=== PATIENT | male | born 1990 | race Caucasian/White ===

== ENCOUNTER 2023-02-06 19:24 | Emergency (ER) | payer OTHER, SELFPAY ==
[2023-02-06 19:39] VITALS: BP 162/94; PULSE 99; RESP 16; TEMP 36.6; O2SAT 94; BMI 28.5
--- NOTE | 2023-02-06 19:53 | ED.GENADULT ---
HPI - General Adult General Date Seen: 02/06/23 Chief complaint: Laceration/Wound Stated complaint: Leg Lac Time Seen by Provider: 02/06/23 19:44 Source: patient Mode of arrival: ambulatory Limitations: no limitations History of Present Illness HPI narrative: Patient is a 32-year-old male who presents about an hour and a half after an injury to his left leg. He says he tripped going up into a trailer and scraped it on a piece of metal. His last tetanus is unknown, we are checking on that. He denies any loss of function or numbness, no other complaints. He says he was not sure if he needed to come in but his girlfriend made him. General health is good. Related Data Allergies Allergy/AdvReac Type Severity Reaction Status Date / Time No Known Drug Allergies Allergy Verified 02/06/23 19:39 Review of Systems Status of ROS: Reports: 6 or more systems reviewed and unremarkable except as noted in History and below [facility] Social History Smoking Status: Current every day smoker What tobacco products do you use: cigarettes Exam Narrative: Exam Narrative: Vital signs reviewed In general, an alert, nontoxic male. Extremities: Examination of the left lower extremity shows a v-shaped flap type laceration on the medial aspect of the anterior lower leg. There is some venous oozing, no arterial bleeding. Distal CMS normal. Skin: Warm and dry, otherwise intact. Const: Vital Signs, click to edit/add: Vital Signs - 24 hr 02/06/23 19:39 Temperature 97.8 F Pulse Rate [Pulse Oximeter] 99 Respiratory Rate 16 Blood Pressure [Ri ght Upper Arm] 162/94 H Pulse Oximetry 94 Oxygen Delivery Me thod Room Air Documenting provider has reviewed patient's vital signs: yes Course Course Hospital Course: Procedure note: Wound was anesthetized with lidocaine plus epinephrine, explored, irrigated with normal saline. No evidence of injury to deeper structures, no foreign body visualized. Wound is closed with 4-0 nylon. Closure was challenging secondary to a thin flap which required some tension to attempt to cover the bulk of the wound. There also appears to be some tissue loss underneath the flap so that the flap is sinking down a little bit. I have warned him that he may have an indentation in the leg there even after it heals. I placed 4 horizontal mattress sutures at the apex of the flap to trying keep the edges approximated and relieve tension. I placed 3 superficial simple interrupted sutures closer to the base of the flap where tension was not an issue. He tolerated this well, dressing is applied by the nurse. Would recommend the sutures stay in place for 10 days given the complexity of the wound. Patient says that he works at a [employer] in 96 degree [place]. For couple of days and then have him stay off of work so that he is not in a sweaty, dirty environment. Thereafter, keep wound clean dry and protected as best as possible. Return for signs of infection. Tetanus was updated today. Vital Signs Vital signs: Initial Vital Signs Temperature 97.8 F 02/06/23 19:39 Temperature Source Temporal Artery Scan 02/06/23 19:39 Pulse Rate 99 02/06/23 19:39 Respiratory Rate 16 02/06/23 19:39 Blood Pressure 162/94 H 02/06/23 19:39 Blood Pressure Mean 116 02/06/23 19:39 Pulse Oximetry 94 02/06/23 19:39 Oxygen Delivery Method Room Air 02/06/23 19:39 Vital Signs Temperature 97.8 F 02/06/23 19:39 Pulse Rate 99 02/06/23 19:39 Respiratory Rate 16 02/06/23 19:39 Blood Pressure 162/94 H 02/06/23 19:39 Pulse Oximetry 94 02/06/23 19:39 Oxygen Delivery Method Room Air 02/06/23 19:39 Temperature 97.8 F 02/06/23 19:39 Pulse Rate 99 02/06/23 19:39 Respiratory Rate 16 02/06/23 19:39 Blood Pressure 162/94 H 02/06/23 19:39 Pulse Oximetry 94 02/06/23 19:39 Oxygen Delivery Method Room Air 02/06/23 19:39 Discharge Plan Discharge Clinical Impression: Laceration of leg Patient Disposition: Home, Self-Care Condition: Improved Instructions: Laceration (DC) Additional Instructions: Suture removal in about 10 days. Return for signs of infection. Keep wound clean dry and protected while healing. An ointment such as Vaseline or Aquaphor over the wound will help to keep it from getting scabbed over. This is good for healing and also make suture removal easier. Follow Up/Referrals: Isaac Byrne MD [Primary Care Provider] - Stand Alone Forms: [employer] Info Instructions
[2023-02-06] MEDS: TETANUS/DIPHTH/PERTUSSIS 0.5 ML SYRINGE IM (20:11)
== END 2023-02-06 20:43 | disposition home or self-care (01) ==
PROVIDERS: Emergency Provider Emergency Medicine; PCP Family Medicine
DX: S81.812A Laceration without foreign body, left lower leg, initial encounter (principal); Z23 Encounter for immunization; W26.9XXA Contact with unspecified sharp object(s), initial encounter
CPT/HCPCS: 12001; 90471; 90715; 99283; 99284